=== PATIENT | male | born 1975 | race Caucasian/White ===

== ENCOUNTER 2024-11-30 16:06 | Emergency (ER) | payer MEDICAID, OTHER ==
[2024-11-30 17:59] LABS: Glucose, Urine (Dipstick) Normal (Negative); Leukocyte 25 (Negative); Protein, Urine (Dipstick) Negative (Neg-Trace); Specific Gravity, Urine 1.005 (1.005-1.030)
[2024-11-30 18:07] LABS: Bacteria/HPF None Seen HPF (None Seen); CAUTI Indications for Culture Alt mental st,lethar; RBC/HPF None Seen HPF (0-3); Urine Culture Reflex No No; WBC/HPF 0-3 HPF (0-3)
== END 2024-11-30 21:17 | disposition home or self-care (01) ==
LOC: CSHERS 16:06
DX: Z00.00 Encounter for general adult medical examination without abnormal findings (principal); R45.1 Restlessness and agitation; Z76.0 Encounter for issue of repeat prescription
CPT/HCPCS: 81001; 87086; 99283